=== PATIENT | female | born 1965 | race Caucasian/White ===

== ENCOUNTER → 2023-06-02 10:43 | Outpatient (REF) | payer OTHER, SELFPAY ==
--- NOTE | 2023-06-02 11:04 | CA_ITS ---
Acquisition Time: 2023-06-02 11:28:52 Total Exercise Time: 00:06:30 Test Indications: CHEST PAIN Medications: WELLBUTRIN ZOLOFT ATORVASTATIN Protocol: EUGENIA Max HR: 142 BPM 87% of Pred: 162 BPM Max BP: 146/070 mmHG Max Work Load: 7.7 METS Exercise stress test exercise 6 min 30 sec of Eugenia protocol achieving 87% MPHR, with 5/10 chest discomfort, with mild SOB, with isolated PACs and PVCs, with normotensive response to exercise, without EKG changes. Chest pain resolved with rest. Test reviewed with Dr. Levy. Referred By: Shaharm Eddy Overread By: Brenda Bess
== END ==
LOC: HO.CARD 10:43
PROVIDERS: PCP Nurse Practitioner; Visit Provider Nurse Practitioner
DX: R07.9 Chest pain, unspecified (principal)
CPT/HCPCS: 93017

== ENCOUNTER → 2023-06-02 11:04 | Outpatient (BNV) | payer OTHER, SELFPAY | PROVIDERS: PCP Nurse Practitioner; Visit Provider Nurse Practitioner | DX: R07.9 Chest pain, unspecified (principal); R06.02 Shortness of breath | CPT/HCPCS: 93016; 93018 ==